=== PATIENT | female | born 1970 | race Asian ===

== ENCOUNTER → 2016-12-18 | Outpatient (CLI) | payer OTHER ==
--- NOTE | ~2016-12-18 | MR165 ---
[facility] A Service of [facility] & [facility] RADIOLOGY TEXT RESULTS PATIENT: CARA PLASCENCIA [facility] : 68 UNIT #: [id number] AGE: [address]: MILLIE MONTAGUE MD SEX: F ORDER DR: [id number] [facility] [address] [place], [place] [address] [id number] O MR#: [id number] Acc #: [id number] NAME: CARA PLASCENCIA : 1970 SEX: F STUDY DATE/TIME: 12/18/2016 10:13 UNIT: [facility] ROOM: STUDY DESCRIPTION: MR Shoulder Wo Contrast Rt Attending Physician: Millie Montague M.D. Referring Physician: Millie Montague M.D. Ordering Physician: Millie Montague M.D. Primary Care Physician: Millie Montague M.D. MRI CENTER REPORT This report is preliminary unless electronic signature is present. EXAM MRI of the right shoulder HISTORY 46-year-old right shoulder pain for 2 months. No known injury. COMPARISON Right shoulder films 12/03/2015 FINDINGS Multiplanar multiecho imaging was performed of the right shoulder utilizing a high field magnet dedicated protocol. Bone structure and alignment appears normal. Minimal AC joint capsular hypertrophy. Marrow signal normal. Diffuse supraspinatus and infraspinatus tendinopathy with a developing bursal sided partial tear distal insertion of the infraspinatus tendon. This is estimated about 1.2 by 1 cm in greatest transverse dimensions. Teres minor and subscapularis tendons appear intact. No muscle atrophy or edema. Superior labrum biceps anchor and long tendon of the biceps appears normal. Anterior-posterior labrum unremarkable. Extraarticular soft tissues appear normal. IMPRESSION 1. Moderate to severe supraspinatus and infraspinatus tendinopathy involving the distal 1.5 to 2 cm of the tendon. Probable developing partial-thickness bursal-sided tear within the infraspinatus tendon measuring about 1 x 1.2 cm. This is estimated to involve less than 50% of the thickness of the thickness of the tendon but may represent a site of impending tear. 2. Mild AC joint arthropathy. Capsular hypertrophy does produce some STS. [facility] A Service of [facility] & [facility] RADIOLOGY TEXT RESULTS PATIENT: CARA PLASCENCIA LOCATION: [facility] : [birth year] UNIT #: [id number] AGE: [address]: MILLIE MONTAGUE MD SEX: F ORDER DR: mass effect on the rotator cuff. 3. Not mentioned above patient does demonstrate a mildly thickened coracoacromial ligament which does contribute to narrowing of the subacromial outlet. Dictated by... Maddi Mckee M.D. THIS IS AN ELECTRONICALLY VERIFIED REPORT Maddi Mckee M.D. at 12/19/2016 5:03 PM ROXI/jackie TD: 12/18/2016 16:52 JOB #: [id number] MRI CENTER REPORT Page 1 of 1 COPY
== END | disposition home or self-care (01) ==
LOC: CMRI 09:11
DX: M75.81 Other shoulder lesions, right shoulder (principal); M19.011 Primary osteoarthritis, right shoulder
CPT/HCPCS: 73221